=== PATIENT | female | born 1940 | race Caucasian/White ===

== ENCOUNTER → 2016-08-12 | Outpatient (CLI) | payer OTHER ==
[~2016-08-12] MED LIST: ADVIN25050 INH; ALBINS INH; CALCTAB5 PO; DIGECAP3 PO; DOCU-94 PO; FLUT0.15; LATA0.5S OP; LUTE20CA PO; MAGN400T5 PO; ZOLE5INJ3 IV
--- NOTE | 2016-08-12 16:01 | MAMMOGRAPHY REPORT ---
BILATERAL DIGITAL SCREENING MAMMOGRAM WITH CAD: 08/12/2016 CLINICAL HISTORY: Routine screening. TECHNIQUE: Current study was also evaluated with a Computer Aided Detection (CAD) system. Bilateral CC and MLO views were obtained. COMPARISON: Comparison is made to exams dated: 08/12/2015 mammogram, 07/24/2014 mammogram, 07/23/2013 ma mmogram, 07/10/2012 mammogram, 07/05/2011 mammogram, and 07/02/2010 mammogram - [facility]. BREAST COMPOSITION: The tissue of both breasts is extremely dense, which lowers the sensitivity of m ammography. FINDINGS: No suspicious masses, calcifications, or areas of architectural distortion are noted in ei ther breast. There has been no significant interval change compared to prior exams. A linear scar ma rker denotes a scar on the left 12:00 breast. A biopsy marker clip is also again noted in the left u pper outer quadrant. Scattered bilateral benign-appearing calcifications are not significantly grossman ed. IMPRESSION: ACR BI-RADS CATEGORY 2: BENIGN There is no mammographic evidence of malignancy. A 1 year screening mammogram is recommended. The pa tient will receive written notification of the results. Approximately 10% of breast cancers are not detected with mammography. A negative mammographic report should not delay biopsy if a clinically suggestive mass is present. Patricia Banda M.D. ah/:08/12/2016 15:01:55 Office Coordinator Receptionist: Jay CLAY)(M), [facility] letter sent: Normal 1/2 BI-RADS Code: ACR BI-RADS Category 2: Benign
== END | disposition home or self-care (01) ==
LOC: C.MAMM 14:38
PROVIDERS: ATTEND Family Medicine
DX: Z12.31 Encounter for screening mammogram for malignant neoplasm of breast (principal)

== ENCOUNTER → 2017-05-09 | Outpatient (CLI) | payer OTHER ==
[2017-05-09 15:04] LABS: BLOOD UREA NITROGEN 24 mg/dl (7-18); CALCIUM 9.6 mg/dl (8.5-10.1); CARBON DIOXIDE 29 mmol/L (21-32); CREATININE 0.91 mg/dl (0.60-1.20); GLUCOSE 100 mg/dl (70-99); POTASSIUM 4.2 mmol/L (3.5-5.1); SODIUM 141 mmol/L (136-145)
== END | disposition home or self-care (01) ==
LOC: C.LAB 12:50
PROVIDERS: ATTEND Internal Medicine Pulmonary Disease
DX: J44.9 Chronic obstructive pulmonary disease, unspecified (principal); J45.909 Unspecified asthma, uncomplicated; R91.8 Other nonspecific abnormal finding of lung field

== ENCOUNTER → 2017-05-22 | Outpatient (CLI) | payer OTHER ==
[~2017-05-22] MED LIST changes: +OPTIRAY 320 IV PRN
--- NOTE | 2017-05-22 10:40 | DIAGNOSTIC IMAGING REPORT ---
(CHEST) THORAX WITH CLINICAL HISTORY: 76 years-old Female presenting with J44.9 Chronic obstructive pulmonary [id number], abnormal finding. TECHNIQUE: Multidetector CT imaging of the chest was performed without the use of intravenous contrast. IV contrast: 93 mL of Optiray 320. A dose lowering technique was used consistent with the principles of ALARA (as low as reasonably achievable). COMPARISON: Chest CT from 10/01/2014. CT DOSE (mGy.cm): The estimated cumulative dose is 199.13 mGy.cm. FINDINGS: Outreach Director topogram: Unremarkable. On soft tissue windows, dominant 15 mm nodule in the left lobe of the thyroid, unchanged. No axillary, supraclavicular, hilar, or mediastinal lymphadenopathy. Atherosclerosis of the aorta. Right atrial enlargement. No pericardial or pleural effusion. Enlarged hepatic veins. On lung windows, minimal dependent changes likely atelectasis. Minimal peripheral tree-in-bud opacities in the anterior and posterior right upper lobe, which are very limited in extent. Similar findings in the superior segment of the right lower lobe bandlike opacity in the lingula likely atelectasis or scarring. Central airways patent. Airways patent. On bone windows, degenerative changes of the spine. IMPRESSION: 1. Minimal tree-in-bud opacities in the right upper and lower lobes, which are very limited in extent and may represent an indolent chronic infection, postinfectious/postinflammatory change, or sequela of aspiration. 2. Right atrial enlargement and enlarged hepatic veins suggests elevated right heart pressure. 3. Dominant left thyroid lobe nodule. Electronically signed by: Carmine Sibley M.D. 05/22/2017 10:39 AM Dictated Date/Time: 05/22/2017 10:33 AM
== END | disposition home or self-care (01) ==
LOC: C.CTS 09:58
PROVIDERS: ATTEND Internal Medicine Pulmonary Disease
DX: R91.8 Other nonspecific abnormal finding of lung field (principal); J98.11 Atelectasis; J44.9 Chronic obstructive pulmonary disease, unspecified; E04.1 Nontoxic single thyroid nodule